=== PATIENT | female | born 1995 | race Caucasian/White ===

== ENCOUNTER 2021-04-13 13:29 | Emergency (ER) | payer MEDICAID ==
[~2021-04-13] VITALS: Ht 149.9 cm; Wt 65.0 kg
[2021-04-13 13:32] VITALS: BP 110/69
[2021-04-13] MEDS ORDERED: SODIUM CHLORIDE 0.9% 1,000 ML IV ONE (14:30)
== END 2021-04-13 15:50 | disposition left against medical advice (07) ==
LOC: EMS 13:32
DX: R55 Syncope and collapse (principal); F41.9 Anxiety disorder, unspecified
CPT/HCPCS: 99283